=== PATIENT | female | born 1955 | race Caucasian/White ===

== ENCOUNTER 2017-02-10 21:52 | Inpatient (IN) | payer OTHER ==
[~2017-02-10] VITALS: Ht 162.6 cm; Wt 74.9 kg
[~2017-02-10 21:52] MED LIST: ALBU8.5H3 IH
[2017-02-11] VITALS (10 sets, daily range): BP systolic 105–126; BP diastolic 64–79; PULSE 62–73; RESP 16–19; Ht 162.6 cm; Wt 74.9 kg
[2017-02-11] MEDS ORDERED: METOCLOPRAMIDE 10 MG INJ IV ONE (01:00)
[2017-02-11] MEDS ORDERED: morphine 2 MG INJ ONE (01:37)
[2017-02-11] MEDS: morphine 2 MG INJ IV PRN ×3 (01:39→19:57)
[2017-02-11] MEDS ORDERED: hydrALAzine 20 MG INJ IV PRN (08:00)
[2017-02-11] MEDS ORDERED: HYDROCODONE/APAP (5/325) TAB PO PRN (08:00)
--- NOTE | 2017-02-11 08:14 | HP ---
DATE OF ADMISSION: 02/11/2017 CHIEF COMPLAINT: Headache, left-sided chest pain of 3 day duration. HISTORY OF PRESENT ILLNESS: The patient states that her symptoms started 3 days ago. She woke up with a headache that persisted until she went back to sleep. The patient reports that he has a history of renal cancer and status post left-sided nephrectomy and because of that, she is a careful about pain medications that she can take. She tried to ride out the pain, but to no avail. Yesterday she developed severe left-sided chest pain, she rates it at about 10/10, associated with numbness on the left side of her face, numbness and heaviness in the left upper extremity. She was also having some tingling in her left lower extremity. He has never had these kind of symptoms before. Because of that and she told her family to take her to the emergency room. In the emergency room her preliminary work up so far has been negative and she is being admitted for chest pain rule out, as well stroke workup. PAST MEDICAL HISTORY: Positive only for high blood pressure. History of renal cell cancer status post nephrectomy without chemo or radiation. PAST SURGICAL HISTORY: Nephrectomy. She also had back surgery, as well with 4 screws and a viral. ALLERGIES: THE PATIENT IS ALLERGIC TO CODEINE, SHE SAYS IT MAKES HER SUFFOCATE. FAMILY HISTORY: Positive for coronary artery disease. Positive for stroke in her brother who of a stroke at age 52. HOME MEDICATIONS: She takes lisinopril 20 mg daily. PHYSICAL EXAMINATION: VITAL SIGNS: Blood pressure 111/71, pulse 66, respiration 18, temperature 97.8. Saturation is 98 percent. GENERAL APPEARANCE: At this time the patient alert and oriented. She is anxious. HEENT: Shows is normocephalic. Pupils are equal, round, reactive. Mucous membranes are moist. Posterior pharynx clear, no erythema, no exudates. There is no facial asymmetry. LUNGS: Clear to auscultation. CARDIOVASCULAR: S1, S2. No murmurs. ABDOMEN: Abdomen is soft, nontender, nondistended. Normal active bowel sounds. EXTREMITIES: No extremity edema. MUSCULOSKELETAL/NEUROLOGIC: The patient has good range of motion in all 4 extremities, without evidence of focal deficits. Even though the patient does have subjective numbness in her upper extremities. SKIN: There is no skin rash. No jaundice. LABORATORY VALUES: I reviewed her lab from the referring sites and the EKG as well as a chest x-ray, and CT of the brain and CT of the brain and EKG did not show any acute deficits. Her labs are grossly normal. Please note that the creatinine was slightly elevated as well as the BUN. ASSESSMENT: 1. Persistent headache and left-sided numbness, presents for possible stroke. 2. Chest pain. Rule out acute coronary syndrome. 3. Acute renal insufficiency. Rule out kidney disease. 4. Status post-left nephrectomy for renal cell cancer. 5. Marijuana use. PLAN: To admit to telemetry floor, stroke workup to include echo and carotid. Patient unfortunately did not have an MRI because of the rods in her back. Neurology consultation will be obtained, and physical therapy evaluation. Will complete acute coronary syndrome rule out with 3 sets of troponin's and get at 2D echo. Further intervention will depend on the clinical course. In the meantime, we will check a lipid profile, thyroid function tests and electrolytes. Patient will be started on aspirin, and a statin will be added if indicated. DEANDRA inhibitors are on hold for now. Will use as needed blood pressure medications only. If necessary patient will be started on a beta niurka. Prophylaxis with SCDs and Pepcid. Plan of care has been discussed with the patient. Questions have been answered. Dictated By: Latrice Joseph MD /saud/josh /Document#: [id number]
[2017-02-11] MEDS: ASPIRIN 81 MG TAB PO SCH (08:57)
[2017-02-11] MEDS: LISINOPRIL 20 MG TAB PO SCH (08:57)
[2017-02-11] MEDS: DOCUSATE SODIUM 100 MG CAP PO SCH ×2 (08:58→20:48)
[2017-02-11] MEDS: FAMOTIDINE 20 MG TAB PO SCH ×2 (08:58→20:48)
[2017-02-11] MEDS ORDERED: ACETAMINOPHEN 325 MG TAB PO PRN (09:00)
[2017-02-11 10:16] LABS: BASOPHILS % 0.4 % (0.0-2.0); EOSINOPHILS # 0.1 10^3/ul (0.0-0.5); HEMATOCRIT 37.5 % (37.0-47.0); HEMOGLOBIN 12.1 g/dl (12.0-16.0); LYMPHOCYTES # 2.2 10^3/ul (0.8-2.9); LYMPHOCYTES % 43.5 % (15.0-51.0); MEAN CORPUSCULAR HEMOGLOBIN 30.4 pg (29.0-33.0); MEAN CORPUSCULAR HGB CONC 32.3 g/dl (32.0-37.0); MEAN CORPUSCULAR VOLUME 94.2 fl (82.0-101.0); MEAN PLATELET VOLUME 10.5 fl (7.4-10.4); MONOCYTE # 0.5 10^3/ul (0.3-0.9); MONOCYTES % 9.8 % (0.0-11.0); NEUTROPHILS % 45.1 % (39.0-77.0); PLATELET COUNT 206 10^3/UL (140-415); RED BLOOD COUNT 3.98 10^6/ul (4.20-5.40); RED CELL DISTRIBUTION WIDTH 13.6 % (11.5-14.5); RETICULOCYTE COUNT % 1.4 % (0.5-1.5)
--- NOTE | 2017-02-11 10:19 | RADRPT ---
PROCEDURE: US Carotids. CLINICAL INDICATION: bruit , CVA TECHNIQUE: Multiple sonographic of the carotid bifurcation region and vertebral arteries were obta ined utilizing palomo scale, duplex and color-flow imaging. The images were reviewed on a PACS worksta tion. COMPARISON: No prior studies are available for comparison. FINDINGS: Evaluation of the right carotid bifurcation region reveals mild calcific atherosclerotic disease. Evaluation of the left carotid bifurcation region reveals no significant calcific atherosclerotic di sease. There is antegrade flow within the vertebral arteries bilaterally. RIGHT CAROTID MEASUREMENTS: Common Carotid Gueqed86.2 (cm/sec) Internal Carotid Artery - kuhqedcx79.1 (cm/sec) Internal Carotid Artery - mid72.5 (cm/sec) Internal Carotid Artery - zuvrle59 (cm/sec) Internal Carotid/Common Carotid1.17 LEFT CAROTID MEASUREMENTS: Common Carotid Vgfixx12.1 (cm/sec) Internal Carotid Artery - aztniujm58.5 (cm/sec) Internal Carotid Artery - mid60.8 (cm/sec) Internal Carotid Artery - .6 (cm/sec) Internal Carotid/Common Carotid1.2 RPTAT: AA IMPRESSION: No evidence for hemodynamically significant stenosis in the bilateral internal carotid arteries - va lidated velocity measurements with angiographic measurements, velocity criteria are extrapolated fro m diameter data as defined by the Society of Radiologists in Ultrasound Consensus Conference Radiolo gy 2003; 229;340-346. This study does indirectly reference the measurement of the distal ICA diamet er as the denominator for stenosis measurement. Normal antegrade flow in the vertebral arteries bilaterally. .Dom Krishnan MD, Date Time Electronically viewed and signed by .Dom Krishnan MD, MD on 02/11/2017 10:19 .S/
--- NOTE | 2017-02-11 10:20 | RADRPT ---
PROCEDURE: Retroperitoneal US. CLINICAL INDICATION: Renal insufficiency TECHNIQUE: Multiple sonographic images of the kidneys and retroperitoneum were obtained. The imag es were reviewed on a PACS workstation. COMPARISON: MR 04/10/2014; US ABDOMEN 04/09/2014 FINDINGS: The right kidney is normal in size, contour, cortical thickness and cortical echogenicity. The right kidney measures 11.8 cm. The patient is status post left nephrectomy. No kidney stones are visualized. There is no evidence for hydronephrosis. The urinary bladder is normal. RPTAT: AA IMPRESSION: Status post left nephrectomy. Normal appearance of the right kidney with no evidence of hydronephrosis. .Dom Krishnan MD, Date Time Electronically viewed and signed by .Dom Krishnan MD, MD on 02/11/2017 10:20 .S/
[2017-02-11 10:25] LABS: ALANINE AMINOTRANSFERASE 37 IU/L (13-69); ALBUMIN 3.9 g/dl (3.3-4.9); ALBUMIN/GLOBULIN RATIO 1.08; ALKALINE PHOSPHATASE 88 IU/L (42-121); ANION GAP 12 (8-16); ASPARTATE AMINO TRANSFERASE 24 IU/L (15-46); BILIRUBIN,INDIRECT 0.5 mg/dl (0-1.1); BILIRUBIN,TOTAL 0.5 mg/dl (0.2-1.3); BLOOD UREA NITROGEN 19 mg/dl (7-20); CALCIUM 9.7 mg/dl (8.4-10.2); CARBON DIOXIDE 28 mmol/L (21-31); CHLORIDE 103 mmol/L (97-110); CHOL/HDL RATIO 3.9 RATIO; CHOLESTEROL 189 mg/dl (100-200); CREATINE KINASE 52 IU/L (23-200); CREATININE 1.19 mg/dl (0.44-1.00); GLUCOSE 100 mg/dl (70-220); HDL CHOLESTEROL 48 mg/dl (35-98); MAGNESIUM 2.2 mg/dl (1.7-2.5); PHOSPHORUS 3.3 mg/dl (2.5-4.9); POTASSIUM 4.1 mmol/L (3.5-5.1); SODIUM 139 mmol/L (135-144); TOTAL PROTEIN 7.5 g/dl (6.1-8.1); TRIGLYCERIDES 185 mg/dl (0-149)
[2017-02-11 10:32] LABS: CK-MB 0.34 ng/ml (0.0-2.4)
[2017-02-11 10:39] LABS: TROPONIN-I < 0.012 ng/ml (0.00-0.12)
--- NOTE | 2017-02-11 10:53 | PN ---
Date/Time of Note Date/Time of Note DATE: 02/11/17 TIME: 10:47 Assessment/Plan VTE Prophylaxis VTE Prophylaxis Intervention: heparin Assessment/Plan Problems: (1) Asthma, moderate persistent Status: Chronic Comment: Patient is not well controlled based on her review of systems. I will continue her Advair here and add in Iliana irizarry. Qualifiers: Asthma complication type: uncomplicated Qualified Code: J45.40 - Moderate persistent asthma without complication (2) Hepatitis C antibody positive in blood Status: Chronic Comment: Status of this is unknown. Will use blood and body fluid precautions in this individual (3) Left-sided headache Status: Acute Comment: I actually suspect this is a presentation of zoster that has not blossomed into the skin rash yet. She will be treated as such and be observed. Please note the negative head CT scan from the other facility. (4) Status post nephrectomy Status: Chronic Comment: Her baseline renal function based on her old labs in this institution is a serum creatinine of 1.19. Her creatinine at the other facility is 1.43. Will recheck this. In addition if she has urinary tract infection we will treat it (5) Essential hypertension Status: Chronic Comment: Continue on DEANDRA inhibitor therapy. (6) Chronic kidney disease, stage II (mild) Status: Chronic Comment: Noted and appropriate after nephrectomy Subjective 24 Hr Interval Summary Free Text/Dictation Re-review of history and exam of the patient demonstrates an extremely variable history. She has multiple chronic complaints however in the last 2 days she has developed a left sided scalp and facial pain. This is limited above the eyebrow from the midline over and radiates to the crown of the neck. She has not developed any rash yet. She reports this is a dysesthesia/allodynia. Constitutional: no complaints Eyes: other (Ports chronic blurriness of vision) Respiratory: cough, wheezing (These are chronic issues) Cardiovascular: no complaints Musculoskeletal: back pain, other (Left shoulder girdle pain that comes and goes and is chronic for many years) Exam/Review of Systems Vital Signs Vitals Vital Signs Date Time Temp Pulse Resp B/P Pulse Ox O2 Delivery O2 Flow Rate FiO2 02/11/17 09:33 62 02/11/17 08:03 98.4 16 119/72 97 02/11/17 04:00 Room Air Exam Constitutional: alert, oriented Head: atraumatic, normocephalic Eyes: EOMI, nl conjunctiva, nl lids, nl sclera ENMT: mucosa pink and moist, nl external ears & nose, nl nasal mucosa & septum , other (Dentition in poor repair) Neck: non-tender, supple Skin: other (At this time no evidence of a rash suggestive of zoster yet) Results Result Diagram: 02/11/1792702/11/1728 Results 24 hrs Laboratory Tests Test 02/11/17 09:28 White Blood Count 5.0 # Red Blood Count 3.98 L Hemoglobin 12.1 Hematocrit 37.5 Mean Corpuscular Volume 94.2 Mean Corpuscular Hemoglobin 30.4 Mean Corpuscular Hemoglobin Concent 32.3 Red Cell Distribution Width 13.6 Platelet Count 206 Mean Platelet Volume 10.5 H Neutrophils % 45.1 Lymphocytes % 43.5 Monocytes % 9.8 Eosinophils % 1.0 Basophils % 0.4 Nucleated Red Blood Cells % 0.0 Neutrophils # (Manual) 2.3 Lymphocytes # 2.2 Monocytes # 0.5 Eosinophils # 0.1 Basophils # 0.0 Nucleated Red Blood Cells # 0.0 Absolute Reticulocyte Count 0.057 Percent Reticulocyte Count 1.4 Sodium Level 139 Potassium Level 4.1 Chloride Level 103 Carbon Dioxide Level 28 Anion Gap 12 Blood Urea Nitrogen 19 Creatinine 1.19 H Glucose Level 100 Calcium Level 9.7 Phosphorus Level 3.3 Magnesium Level 2.2 Total Bilirubin 0.5 Direct Bilirubin 0.00 Indirect Bilirubin 0.5 Aspartate Amino Transf (AST/SGOT) 24 Alanine Aminotransferase (ALT/SGPT) 37 Alkaline Phosphatase 88 Creatine Kinase 52 Creatine Kinase Index 0.7 Creatinine Kinase MB (Mass) 0.34 Troponin I < 0.012 Total Protein 7.5 Albumin 3.9 Globulin 3.60 H Albumin/Globulin Ratio 1.08 Triglycerides Level 185 H Cholesterol Level 189 LDL Cholesterol, Calculated 104 HDL Cholesterol 48 Cholesterol/HDL Ratio 3.9 Thyroid Stimulating Hormone (TSH) Pending Medications Medications Current Medications Morphine Sulfate 2 mg 2 mg Q4H PRN IV PAIN Last administered on 02/11/17t 01:39 ; Admin Dose 2 MG; Start 02/11/17 at 01:00 Sodium Chloride (NS) 1,000 ml @ 100 mls/hr Q10H IV ; Start 02/11/17 at 01:00; Stop 02/11/17 at 20:59 Famotidine (Pepcid) 20 mg BID PO Last administered on 02/11/17 08:58; Admin Dose 20 MG; Start 02/11/17 at 09:00 Ondansetron HCl (Zofran Inj) 4 mg Q6H PRN IV NAUSEA AND/OR VOMITING; Start at 01:00 Aspirin (Aspirin) 81 mg DAILY PO Last administered on 02/11/17 08:57; Admin Dose 81 MG; Start 02/11/17 at 09:00 Docusate Sodium (Colace) 100 mg BID PO Last administered on 02/11/17 08:58; Admin Dose 100 MG; Start 02/11/17 at 09:00 Lisinopril (Zestril) 20 mg DAILY PO Last administered on 02/11/17 08:57; Admin Dose 20 MG; Start 02/11/17 at 09:00 Hydralazine HCl (Apresoline) 10 mg Q6H PRN IV SBP 160 OR EQUAL; Start 02/11/17 at 08:00 Acetaminophen/ Hydrocodone Bitart ([place] (5/325)) 1 tab Q6H PRN PO BREAKTHROUGH PAIN; Start 02/11/17 at 08:00; Status UNV Acetaminophen (Tylenol Tab) 650 mg Q6H PRN PO PAIN AND OR ELEVATED TEMP; Start 02/11/17 at 09:00; Status Future Hold Miscellaneous Information NORCO 5/ 325 #6 TA... BID@ XX ; Start 02/11/17 at 10:00 MARIANNE LEOS MD Feb 11, 2017 10:53
[2017-02-11] MEDS: SALMETEROL/FLUTICASONE 250/50 INHA INH SCH ×2 (11:00→20:48)
--- NOTE | 2017-02-11 11:16 | RADRPT ---
Echocardiogram Report Patient Name: HAMZAH VILLARREAL Gender: Female Date: 1955 Study Date: 11-Feb-2017 [employer] Teacher: Nino Andres [facility] Location: [address] Ref. Physician: DOMENICA LOPES Quality: Adequate Procedures: Transthoracic echocardiogram with complete 2D, M-Mode, and doppler examination. Indications: Evaluate Left Ventricular function. 2D/M Mode Doppler Measurement Value Normal Ranges Measurement Value Normal Ranges LVIDd 2D 4.9 3.5 - 5.6 cm AV Peak Cristo 1.3 m/sec LVIDs 2D 3.0 2.1 - 4.1 cm AV Peak PG 7.0 mmHg FS 2D 39.2 % AI Peak PG 67.0 mmHg LVPWd 2D 0.8 0.6 - 1.1 cm AI Peak Cristo 4.1 m/sec IVSd 2D 0.7 0.6 - 1.1 cm AI PHT 776.0 msec IVS/LVPW 2D 0.9 LVOT Peak Cristo 0.7 m/sec AoR Diam 2D 2.6 2.0 - 3.7 cm LVOT Peak PG 2.0 mmHg LA/Ao 2D 1 0 - 1 MV E Peak Cristo 0.6 m/sec EDV 2D 121.0 cm3 MV A Peak Cristo 0.8 m/sec ESV 2D 27.3 cm3 MV E/A 0.8 LA Dimen 2D 2.4 2.3 - 4.0 cm MV Decel Time 194 msec MV E/A 0.8 TR Peak Cristo 2.2 m/sec TR Peak PG 20.0 mmHg RVSP 23.0 mmHg Findings Left Ventricle: Normal left ventricular systolic function. Normal left ventricular cavity size. Normal left ventricular wall thickness. Ejection fraction is visually estimated at 55 %. Tissue Doppler/Mitral Doppler indices are consistent with impaired relaxation (Stage I diastolic dysfunction). Right Ventricle: Normal right ventricular size. Normal right ventricular systolic function. Left Atrium: There is mild enlargement of left atrium. Right Atrium: The right atrium is normal in size. Mitral Valve: Normal appearance and function of the mitral valve with trace physiologic regurgitation. Aortic Valve: Normal trileaflet aortic valve structure. Aortic cusps appear mildly calcified. Mild aortic valve regurgitation. Tricuspid Valve: Normal appearance of the tricuspid valve. Estimated peak PA systolic pressure 23 mmHg. There is trace tricuspid regurgitation. Pulmonic Valve: Normal pulmonic valve appearance. There is mild pulmonic regurgitation. Pericardium: Normal pericardium with no significant pericardial effusion. Aorta: Sinus of valsalva is mildly dilated. Sinus of valsalva3.2 cm. IVC: Normal size and normal respiratory collapse consistent with normal right atrial pressure. Conclusions 1.Normal left ventricular systolic function. Normal left ventricular cavity size. Normal left ventricular wall thickness. Ejection fraction is visually estimated at 55 %. Tissue Doppler/Mitral Doppler indices are consistent with impaired relaxation (Stage I diastolic dysfunction). 2.Mild aortic regurgitation. 3.Sinus of valsalva is mildly dilated at 3.2 cm. 4.Estimated peak PA systolic pressure 23 mmHg based on RA pressure of 3 mmHg. Electronically Signed By: Bishop Melo 11-Feb-2017 11:15:00 -0700 Patient Name: HAMZAH VILLARREAL Study Date: 11-Feb-2017 [id number]
[2017-02-11 11:48] LABS: CHOL/HDL RATIO 3.7 RATIO
[2017-02-11] MEDS: SOD CHLORIDE 0.9% 1,000 ML IV SCH (19:57)
[2017-02-11] MEDS: MONTELUKAST 10 MG TAB PO SCH (20:48)
[2017-02-11] MEDS: VALACYCLOVIR 500 MG TAB PO SCH (20:49)
[2017-02-12] VITALS (13 sets, daily range): BP systolic 102–126; BP diastolic 61–86; PULSE 66–108; RESP 16–19
[2017-02-12] MEDS: morphine 2 MG INJ IV PRN ×3 (00:20→17:31)
[2017-02-12] MEDS: SOD CHLORIDE 0.9% 1,000 ML IV SCH (06:14)
[2017-02-12 07:03] LABS: BASOPHILS % 0.2 % (0.0-2.0); EOSINOPHILS # 0.1 10^3/ul (0.0-0.5); EOSINOPHILS % 1.1 % (0.0-7.0); HEMATOCRIT 36.9 % (37.0-47.0); HEMOGLOBIN 12.1 g/dl (12.0-16.0); LYMPHOCYTES # 2.6 10^3/ul (0.8-2.9); LYMPHOCYTES % 46.6 % (15.0-51.0); MEAN CORPUSCULAR HEMOGLOBIN 30.9 pg (29.0-33.0); MEAN CORPUSCULAR HGB CONC 32.8 g/dl (32.0-37.0); MEAN CORPUSCULAR VOLUME 94.1 fl (82.0-101.0); MEAN PLATELET VOLUME 10.3 fl (7.4-10.4); MONOCYTE # 0.5 10^3/ul (0.3-0.9); MONOCYTES % 9.3 % (0.0-11.0); NEUTROPHILS % 42.6 % (39.0-77.0); PLATELET COUNT 210 10^3/UL (140-415); RED BLOOD COUNT 3.92 10^6/ul (4.20-5.40); RED CELL DISTRIBUTION WIDTH 13.5 % (11.5-14.5); WHITE BLOOD COUNT 5.5 10^3/ul (4.8-10.8)
[2017-02-12 07:45] LABS: ALBUMIN 3.8 g/dl (3.3-4.9); ALBUMIN/GLOBULIN RATIO 1.08; BILIRUBIN,INDIRECT 0.5 mg/dl (0-1.1); BILIRUBIN,TOTAL 0.5 mg/dl (0.2-1.3); CREATININE 1.13 mg/dl (0.44-1.00); TOTAL PROTEIN 7.3 g/dl (6.1-8.1)
[2017-02-12] MEDS: LISINOPRIL 20 MG TAB PO SCH (09:12)
[2017-02-12] MEDS: SALMETEROL/FLUTICASONE 250/50 INHA INH SCH ×2 (09:12→21:51)
[2017-02-12] MEDS: VALACYCLOVIR 500 MG TAB PO SCH ×2 (09:12→21:53)
[2017-02-12] MEDS: ASPIRIN 81 MG TAB PO SCH (09:12)
[2017-02-12] MEDS: FAMOTIDINE 20 MG TAB PO SCH ×2 (09:12→21:53)
[2017-02-12] MEDS: DOCUSATE SODIUM 100 MG CAP PO SCH ×2 (09:12→21:53)
--- NOTE | 2017-02-12 09:59 | PN ---
Date/Time of Note Date/Time of Note DATE: 02/12/17 TIME: 09:56 Assessment/Plan VTE Prophylaxis VTE Prophylaxis Intervention: other Lines/Catheters IV [facility] (from [facility] Saline Lock Assessment/Plan Problems: (1) Hepatitis C antibody positive in blood Status: Chronic Comment: Noted. This is unclear whether or not she has a viral antibody positivity. She will be treated with blood and body fluid precautions. This can be followed up as an outpatient by gastroenterology (2) Essential hypertension Status: Chronic Comment: Adequate control. (3) Diastolic dysfunction Status: Chronic Comment: Noted. Controlled with blood pressure medications (4) Aortic regurgitation Status: Chronic Comment: Noted. No indication for change in therapeutics Qualifiers: Cardiac valve disease etiology: nonrheumatic Qualified Code: I35.1 - Nonrheumatic aortic valve insufficiency (5) Asthma, moderate persistent Status: Chronic Comment: Well-controlled with standard and routine medications Qualifiers: Asthma complication type: uncomplicated Qualified Code: J45.40 - Moderate persistent asthma without complication (6) Left-sided headache Status: Acute Comment: I am still of the impression given the negative CT scan from the other institution that this represents acute varicella-zoster. Rash has not presented yet. Not got the patient on in valacyclovir. I will add in gabapentin now Subjective 24 Hr Interval Summary Free Text/Dictation Variable historian who changes information frequently Constitutional: no complaints (Denies fevers chills or sweats) Eyes: no complaints ENT: no complaints Respiratory: no complaints Cardiovascular: no complaints Gastrointestinal: no complaints Neurologic: headache (Planes of throbbing headache. With careful history taking this predominantly left-sided.) Exam/Review of Systems Vital Signs Vitals Vital Signs Date Time Temp Pulse Resp B/P Pulse Ox O2 Delivery O2 Flow Rate FiO2 02/12/17 08:05 69 02/12/17 07:40 98.4 18 116/69 100 02/11/17 04:00 Room Air Intake and Output 02/11/17 02/11/17 02/12/17 15:00 23:00 07:00 Intake Total 1300 ml Balance 1300 ml Exam Constitutional: alert, oriented Respiratory: clear to auscultation, normal air movement Cardiovascular: nl pulses, regular rate and rhythm Gastrointestinal: nl liver, spleen, non-tender, soft Skin: other Results Result Diagram: 02/12/17 0602/12/17 0606 Results 24 hrs Laboratory Tests Test 02/11/17 15:00 02/12/17 06:06 Hepatitis B Surface Antigen NEGATIVE Hepatitis C Antibody REACTIVE H White Blood Count 5.5 Red Blood Count 3.92 L Hemoglobin 12.1 Hematocrit 36.9 L Mean Corpuscular Volume 94.1 Mean Corpuscular Hemoglobin 30.9 Mean Corpuscular Hemoglobin Concent 32.8 Red Cell Distribution Width 13.5 Platelet Count 210 Mean Platelet Volume 10.3 Neutrophils % 42.6 Lymphocytes % 46.6 Monocytes % 9.3 Eosinophils % 1.1 Basophils % 0.2 Nucleated Red Blood Cells % 0.0 Neutrophils # (Manual) 2.3 Lymphocytes # 2.6 Monocytes # 0.5 Eosinophils # 0.1 Basophils # 0.0 Nucleated Red Blood Cells # 0.0 Sodium Level 144 Potassium Level 4.0 Chloride Level 106 Carbon Dioxide Level 26 Anion Gap 16 Blood Urea Nitrogen 18 Creatinine 1.13 H Glucose Level 93 Calcium Level 9.0 Total Bilirubin 0.5 Direct Bilirubin 0.00 Indirect Bilirubin 0.5 Aspartate Amino Transf (AST/SGOT) 21 Alanine Aminotransferase (ALT/SGPT) 30 Alkaline Phosphatase 81 Total Protein 7.3 Albumin 3.8 Globulin 3.50 H Albumin/Globulin Ratio 1.08 Medications Medications Current Medications Morphine Sulfate (morphine) 2 mg Q4H PRN IV PAIN Last administered on 09:13; Admin Dose 2 MG; Start 02/11/17 at 01:00 Famotidine (Pepcid) 20 mg BID PO Last administered on 02/12/17 09:12; Admin Dose 20 MG; Start 02/11/17 at 09:00 Ondansetron HCl (Zofran Inj) 4 mg Q6H PRN IV NAUSEA AND/OR VOMITING; Start at 01:00 Aspirin (Aspirin) 81 mg DAILY PO Last administered on 02/12/17 09:12; Admin Dose 81 MG; Start 02/11/17 at 09:00 Docusate Sodium (Colace) 100 mg BID PO Last administered on 02/12/17 09:12; Admin Dose 100 MG; Start 02/11/17 at 09:00 Lisinopril (Zestril) 20 mg DAILY PO Last administered on 02/12/17 09:12; Admin Dose 20 MG; Start 02/11/17 at 09:00 Hydralazine HCl (Apresoline) 10 mg Q6H PRN IV SBP 160 OR EQUAL; Start 02/11/17 at 08:00 Acetaminophen/ Hydrocodone Bitart ([place] (5/325)) 1 tab Q6H PRN PO BREAKTHROUGH PAIN; Start 02/11/17 at 08:00 Acetaminophen (Tylenol Tab) 650 mg Q6H PRN PO PAIN AND OR ELEVATED TEMP; Start 02/11/17 at 09:00; Status Future Hold Miscellaneous Information NORCO 5/ 325 #6 TA... BID@ XX ; Start 02/11/17 at 10:00 Valacyclovir HCl (Valtrex) 500 mg BID PO Last administered on 02/12/17 09:12; Admin Dose 500 MG; Start 02/11/17 at 21:00 Salmeterol Xinafoate/ Fluticasone (Advair 250/50 Diskus) 1 inh BID INH Last administered on 02/12/17 09:12; Admin Dose 1 INH; Start 02/11/17 at 11:00 Montelukast Sodium (Singulair) 10 mg HS PO Last administered on 02/11/17 20:48 ; Admin Dose 10 MG; Start 02/11/17 at 21:00 MARIANNE LEOS MD Feb 12, 2017 09:59
[2017-02-12] MEDS: GABAPENTIN 300 MG CAP PO SCH ×2 (12:53→21:53)
[2017-02-12] MEDS: MONTELUKAST 10 MG TAB PO SCH (21:53)
[2017-02-12 23:15] LABS: ADD UMIC YES; UR ASCORBIC ACID NEGATIVE (NEGATIVE); UR BILIRUBIN (Dip) NEGATIVE (NEGATIVE); UR BLOOD (Dip) 1+ mg/dL (NEGATIVE); UR CLARITY CLEAR (CLEAR); UR COLOR STRAW (YELLOW); UR GLUCOSE (Dip) NEGATIVE (NEGATIVE); UR KETONES (Dip) NEGATIVE (NEGATIVE); UR LEUKOCYTE ESTERASE (Dip) 1+ Leu/ul (NEGATIVE); UR NITRITE (Dip) NEGATIVE (NEGATIVE); UR RBC 5 /HPF (0-5); UR SPECIFIC GRAVITY (Dip) 1.009 (1.003-1.030); UR TOTAL PROTEIN (Dip) NEGATIVE (NEGATIVE); UR UROBILINOGEN (Dip) NEGATIVE (NEGATIVE)
[2017-02-13] VITALS (12 sets, daily range): BP systolic 93–122; BP diastolic 60–80; PULSE 60–80; RESP 16–19
[2017-02-13 07:03] LABS: BASOPHILS % 0.5 % (0.0-2.0); EOSINOPHILS # 0.1 10^3/ul (0.0-0.5); EOSINOPHILS % 1.3 % (0.0-7.0); HEMATOCRIT 38.8 % (37.0-47.0); HEMOGLOBIN 12.5 g/dl (12.0-16.0); LYMPHOCYTES # 2.5 10^3/ul (0.8-2.9); LYMPHOCYTES % 44.1 % (15.0-51.0); MEAN CORPUSCULAR HEMOGLOBIN 29.8 pg (29.0-33.0); MEAN CORPUSCULAR HGB CONC 32.2 g/dl (32.0-37.0); MEAN CORPUSCULAR VOLUME 92.6 fl (82.0-101.0); MEAN PLATELET VOLUME 10.2 fl (7.4-10.4); MONOCYTE # 0.6 10^3/ul (0.3-0.9); MONOCYTES % 10.1 % (0.0-11.0); NEUTROPHILS % 43.8 % (39.0-77.0); PLATELET COUNT 203 10^3/UL (140-415); RED BLOOD COUNT 4.19 10^6/ul (4.20-5.40); RED CELL DISTRIBUTION WIDTH 13.6 % (11.5-14.5); WHITE BLOOD COUNT 5.6 10^3/ul (4.8-10.8)
[2017-02-13 07:34] LABS: C-REACTIVE PROTEIN 0.5 mg/dl (0.0-0.9); CALCIUM 9.8 mg/dl (8.4-10.2); CREATININE 1.23 mg/dl (0.44-1.00); POTASSIUM 4.1 mmol/L (3.5-5.1)
[2017-02-13] MEDS: SALMETEROL/FLUTICASONE 250/50 INHA INH SCH ×2 (08:53→20:39)
[2017-02-13] MEDS: DOCUSATE SODIUM 100 MG CAP PO SCH ×2 (08:54→20:39)
[2017-02-13] MEDS: ASPIRIN 81 MG TAB PO SCH (08:54)
[2017-02-13] MEDS: LISINOPRIL 20 MG TAB PO SCH (08:54)
[2017-02-13] MEDS: GABAPENTIN 300 MG CAP PO SCH ×3 (08:54→20:41)
[2017-02-13] MEDS: VALACYCLOVIR 500 MG TAB PO SCH ×2 (08:54→21:00)
[2017-02-13] MEDS: FAMOTIDINE 20 MG TAB PO SCH (08:54)
[2017-02-13] MEDS: morphine 2 MG INJ IV PRN (10:29)
[2017-02-13] MEDS: ONDANSETRON 4 MG INJ IV PRN (12:35)
[2017-02-13] MEDS ORDERED: HYDROCODONE/APAP (10/325) TAB PO PRN (15:30)
--- NOTE | 2017-02-13 17:25 | PN ---
Date/Time of Note Date/Time of Note DATE: 02/13/17 TIME: 17:21 Assessment/Plan VTE Prophylaxis VTE Prophylaxis Intervention: LMWH Lines/Catheters IV [facility]from [facility] Saline Lock Assessment/Plan Chief Complaint/Hosp Course Subjective: Bilateral black back flank pain radiating down right leg to her toes. No known aggravating or relieving factors. 2-3 weeks. No treatment prior to arrival. Refuses nonsteroidals/Tylenol. No fever chills weight loss incontinence or loss of sensation. Dysuria. Objective: Vital signs stable sinus rhythm No pallor Reg Clear Bs + nt nd no r/r/g; no CVAT No edema; straight leg raising stress test greater than 45 bilat A/P 1. Headache/ cephalgia. CT brain pending; stable cont supportive care 2. Marijuana use? 3. Atypical chest pain. Second troponin in am. 3. Right-sided sciatica. Outpt pt. Avoid constipation. Cont Neurontin/ Flexeril. Prednisone added. Refuses nonsteroidal/Tylenol 4. Nonadherence 5. History of renal cell carcinoma 6. Nephrectomy status 7. Chronic hypertension 8. Hepatitis C? Confirmatory test pending 9. UTI? Culture appears negative at this time. Problems: Exam/Review of Systems Vital Signs Vitals Vital Signs Date Time Temp Pulse Resp B/P Pulse Ox O2 Delivery O2 Flow Rate FiO2 02/13/17 16:04 73 02/13/17 15:44 97.8 19 105/70 97 02/11/17 04:00 Room Air Intake and Output 02/12/17 02/12/17 02/13/17 15:00 23:00 07:00 Intake Total 650 ml Balance 650 ml Results Result Diagram: 02/13/17 0610 02/13/17 0610 Results 24 hrs Laboratory Tests Test 02/12/17 20:00 02/13/17 06:10 Urine Color STRAW Urine Clarity CLEAR Urine pH 6.0 Urine Specific [place] 1.009 Urine Ketones NEGATIVE Urine Nitrite NEGATIVE Urine Bilirubin NEGATIVE Urine Urobilinogen NEGATIVE Urine Leukocyte Esterase 1+ H Urine Microscopic RBC 5 Urine Microscopic WBC 4 Urine Hemoglobin 1+ H Urine Glucose NEGATIVE Urine Total Protein NEGATIVE White Blood Count 5.6 Red Blood Count 4.19 L Hemoglobin 12.5 Hematocrit 38.8 Mean Corpuscular Volume 92.6 Mean Corpuscular Hemoglobin 29.8 Mean Corpuscular Hemoglobin Concent 32.2 Red Cell Distribution Width 13.6 Platelet Count 203 Mean Platelet Volume 10.2 Neutrophils % 43.8 Lymphocytes % 44.1 Monocytes % 10.1 Eosinophils % 1.3 Basophils % 0.5 Nucleated Red Blood Cells % 0.0 Neutrophils # (Manual) 2.4 Lymphocytes # 2.5 Monocytes # 0.6 Eosinophils # 0.1 Basophils # 0.0 Nucleated Red Blood Cells # 0.0 Erythrocyte Sedimentation Rate 25.0 Sodium Level 144 Potassium Level 4.1 Chloride Level 103 Carbon Dioxide Level 27 Anion Gap 18 H Blood Urea Nitrogen 19 Creatinine 1.23 H Glucose Level 99 Calcium Level 9.8 C-Reactive Protein 0.5 Medications Medications Current Medications Morphine Sulfate (morphine) 2 mg Q4H PRN IV PAIN Last administered on 10:29; Admin Dose 2 MG; Start 02/11/17 at 01:00 Ondansetron HCl (Zofran Inj) 4 mg Q6H PRN IV NAUSEA AND/OR VOMITING Last administered on 02/13/17 12:35; Admin Dose 4 MG; Start 02/11/17 at 01:00 Aspirin (Aspirin) 81 mg DAILY PO Last administered on 02/13/17 08:54; Admin Dose 81 MG; Start 02/11/17 at 09:00 Docusate Sodium (Colace) 100 mg BID PO Last administered on 02/13/17 08:54; Admin Dose 100 MG; Start 02/11/17 at 09:00 Lisinopril (Zestril) 20 mg DAILY PO Last administered on 02/13/17 08:54; Admin Dose 20 MG; Start 02/11/17 at 09:00 Hydralazine HCl (Apresoline) 10 mg Q6H PRN IV SBP 160 OR EQUAL; Start 02/11/17 at 08:00 Acetaminophen/ Hydrocodone Bitart ([place] (5/325)) 1 tab Q6H PRN PO BREAKTHROUGH PAIN; Start 02/11/17 at 08:00 Acetaminophen (Tylenol Tab) 650 mg Q6H PRN PO PAIN AND OR ELEVATED TEMP; Start 02/11/17 at 09:00; Status Future Hold Valacyclovir HCl (Valtrex) 500 mg BID PO Last administered on 02/13/17 08:54; Admin Dose 500 MG; Start 02/11/17 at 21:00 Salmeterol Xinafoate/ Fluticasone (Advair 250/50 Diskus) 1 inh BID INH Last administered on 02/13/17 08:53; Admin Dose 1 INH; Start 02/11/17 at 11:00 Montelukast Sodium (Singulair) 10 mg HS PO Last administered on 02/12/17 21:53 ; Admin Dose 10 MG; Start 02/11/17 at 21:00 Gabapentin (Neurontin) 300 mg TID PO Last administered on 02/13/17 12:35; Admin Dose 300 MG; Start 02/12/17 at 13:00 Famotidine (Pepcid) 20 mg DAILY PO ; Start 02/14/17 at 09:00 Acetaminophen/ Hydrocodone Bitart ([place] (10325)) 1 tab Q4H PRN PO PAIN; Start 02/13/17 at 15:30 Miscellaneous Information This note indicates t... BID@10,16 XX ; Start at 16:00 OTILIO CANALES MD Feb 13, 2017 17:25
[2017-02-13] MEDS ORDERED: METHYLPREDNISOLONE (MEDROL) DOSE PACK PO SCH (17:30)
[2017-02-13] MEDS ORDERED: METHYLPREDNISOLONE 4 MG TAB PO SCH (18:00)
[2017-02-13] MEDS: MONTELUKAST 10 MG TAB PO SCH (20:41)
[2017-02-13] MEDS: METHOCARBAMOL 750 MG TAB PO SCH ×2 (20:41→21:00)
[2017-02-14] VITALS (8 sets, daily range): BP systolic 99–132; BP diastolic 61–79; PULSE 75–96; RESP 18–19
[2017-02-14] MEDS ORDERED: METHYLPREDNISOLONE 4 MG TAB PO SCH ×4 (07:25→21:00)
[2017-02-14 07:46] LABS: BASOPHILS % 0.3 % (0.0-2.0); HEMATOCRIT 40.7 % (37.0-47.0); HEMOGLOBIN 13.3 g/dl (12.0-16.0); LYMPHOCYTES % 14.9 % (15.0-51.0); MEAN CORPUSCULAR HEMOGLOBIN 30.2 pg (29.0-33.0); MEAN CORPUSCULAR HGB CONC 32.7 g/dl (32.0-37.0); MEAN CORPUSCULAR VOLUME 92.5 fl (82.0-101.0); MEAN PLATELET VOLUME 10.5 fl (7.4-10.4); MONOCYTE # 0.1 10^3/ul (0.3-0.9); NEUTROPHILS % 82.5 % (39.0-77.0); PLATELET COUNT 223 10^3/UL (140-415); RED CELL DISTRIBUTION WIDTH 13.5 % (11.5-14.5); WHITE BLOOD COUNT 6.5 10^3/ul (4.8-10.8)
[2017-02-14] MEDS: morphine 2 MG INJ IV PRN (07:46)
[2017-02-14 08:06] LABS: INR 0.94; PROTIME 12.6 Sec (12.2-14.2)
[2017-02-14 08:21] LABS: ALBUMIN 4.5 g/dl (3.3-4.9); ALBUMIN/GLOBULIN RATIO 1.15; BILIRUBIN,INDIRECT 0.2 mg/dl (0-1.1); BILIRUBIN,TOTAL 0.2 mg/dl (0.2-1.3); CALCIUM 10.1 mg/dl (8.4-10.2); CREATININE 1.33 mg/dl (0.44-1.00); MAGNESIUM 2.1 mg/dl (1.7-2.5); PHOSPHORUS 3.4 mg/dl (2.5-4.9); TOTAL PROTEIN 8.4 g/dl (6.1-8.1)
[2017-02-14] MEDS ORDERED: FAMOTIDINE 20 MG TAB PO SCH (09:00)
[2017-02-14] MEDS: SALMETEROL/FLUTICASONE 250/50 INHA INH SCH (09:16)
[2017-02-14] MEDS: DOCUSATE SODIUM 100 MG CAP PO SCH (09:16)
[2017-02-14] MEDS: LISINOPRIL 20 MG TAB PO SCH (09:17)
[2017-02-14] MEDS: METHOCARBAMOL 750 MG TAB PO SCH ×2 (09:17→12:00)
[2017-02-14] MEDS: ASPIRIN 81 MG TAB PO SCH (09:17)
[2017-02-14] MEDS: GABAPENTIN 300 MG CAP PO SCH ×2 (09:17→12:00)
--- NOTE | 2017-02-14 10:19 | RADRPT ---
PROCEDURE: CT Brain without contrast. CLINICAL INDICATION: Headaches. TECHNIQUE: A CT of the brain was performed on multidetector high-resolution CT scanner utilizing a xial sections from the skull base through the vertex without contrast. One or more of the following dose reduction techniques were used: Automated exposure control, Adjustment of the mA and/or kV acc ording to patient size, and/or use of iterative reconstruction technique. DOSE: CTDI = 45 mGy and the DLP = 630 mGy-cm. COMPARISON: Head CT 01/19/2013 FINDINGS: No acute intracranial hemorrhage, significant mass effect or midline shift. The palomo-white different iation is grossly preserved. The ventricles are normal in size for age. No significant opacification of the visualized paranasal sinuses or mastoids. IMPRESSION: No acute intracranial findings. RPTAT: AA .Nando Clements MD, MD Date Time Electronically viewed and signed by .Nando Clements MD, on 02/14/2017 10:19 .T/
[2017-02-14] MEDS: VALACYCLOVIR 500 MG TAB PO SCH (12:00)
--- NOTE | 2017-02-14 12:29 | DS ---
Date/Time of Note Date/Time of Note DATE: 02/14/17 TIME: 12:26 Discharge Summary Admission/Discharge Info Admit Date/Time Feb 11, 2017 at 00:01 Discharge Date/Time Discharge Diagnosis sciatica Patient Condition: Stable Procedures none Hx of Present Illness 2-year-old female admitted with atypical chest pain. Ruled out for ACS by enzymes EKG symptoms. Chest x-ray negative. Next had stated bilateral flank back pain with radiation down right leg. Similar to previous sciatica. She has hardware. She refuses nonsteroidals Tylenol due to "kidney trouble". She started therapy, I have added muscle relaxant and prednisone. She stable and fit for discharge. Next had a headache numbness in the facial area without any change in speech and dysphagia or focal deficits. CAT scan brain negative. Next she claimed to have dysuria. Urine unremarkable. She is stable and fit for discharge. I would consider fibromyalgia as a potential trouble as well. Hospital Course A/P 1. Headache/ cephalgia. CT brain normal; stable cont supportive care 2. Marijuana use? 3. Atypical chest pain. 3. Rt-sided sciatica. Outpt pt. Avoid constipation. Cont Neurontin/Flexeril. Prednisone added. Refuses nonsteroidal/Tylenol 4. Nonadherence 5. History of renal cell carcinoma 6. Nephrectomy status 7. Chr hypertension 8. Hep C? Confirmatory test pending 9. Dysuria/UTI? Culture appears negative at this time. consider bethaenchol/ pyridium Imaging: CT brain, chest x-ray, renal ultrasound are normal. Cultures negative / No growth. Home Meds Reported Medications Albuterol Sulfate* (Proair HFA*) 8.5 Gm Hfa.aer.ad, 8.5 GM IH Q4 Y for WHEEZING AND SOB 01/19/13 Primary Care Provider Martinez Evans Pending Labs Laboratory Tests Test 02/14/17 06:50 02/14/17 06:54 02/14/17 06:59 Sodium Level 143mmol/L (135-144) Potassium Level 5.0mmol/L (3.5-5.1) Chloride Level 102mmol/L (97-110) Carbon Dioxide Level 24mmol/L (21-31) Anion Gap 22 (8-16) Blood Urea Nitrogen 27mg/dl (7-20) Creatinine 1.33mg/dl (0.44-1.00) Glucose Level 163mg/dl (70-220) Calcium Level 10.1mg/dl (8.4-10.2) Phosphorus Level 3.4mg/dl (2.5-4.9) Magnesium Level 2.1mg/dl (1.7-2.5) Total Bilirubin 0.2mg/dl (0.2-1.3) Direct Bilirubin 0.00mg/dl (0.00-0.20) Indirect Bilirubin 0.2mg/dl (0-1.1) Aspartate Amino Transf (AST/SGOT) 42IU/L (15-46) Alanine Aminotransferase (ALT/SGPT) 45IU/L (13-69) Alkaline Phosphatase 87IU/L (42-121) Total Protein 8.4g/dl (6.1-8.1) Albumin 4.5g/dl (3.3-4.9) Globulin 3.90g/dl (1.3-3.2) Albumin/Globulin Ratio 1.15 Prothrombin Time 12.6Sec (12.2-14.2) Prothrombin Time Ratio 1.0 INR International Normalized Ratio 0.94 White Blood Count 6.510^3/ul (4.8-10.8) Red Blood Count 4.4010^6/ul (4.20-5.40) Hemoglobin 13.3g/dl (12.0-16.0) Hematocrit 40.7% (37.0-47.0) Mean Corpuscular Volume 92.5fl (82.0-101.0) Mean Corpuscular Hemoglobin 30.2pg (29.0-33.0) Mean Corpuscular Hemoglobin Concent 32.7g/dl (32.0-37.0) Red Cell Distribution Width 13.5% (11.5-14.5) Platelet Count 43771^3/UL (140-415) Mean Platelet Volume 10.5fl (7.4-10.4) Neutrophils % 82.5% (39.0-77.0) Lymphocytes % 14.9% (15.0-51.0) Monocytes % 2.0% (0.0-11.0) Eosinophils % 0.0% (0.0-7.0) Basophils % 0.3% (0.0-2.0) Nucleated Red Blood Cells % 0.0/100WBC (0.0-0.0) Neutrophils # (Manual) 5.410^3/ul (1.7-7.5) Lymphocytes # 1.010^3/ul (0.8-2.9) Monocytes # 0.110^3/ul (0.3-0.9) Eosinophils # 0.010^3/ul (0.0-0.5) Basophils # 0.010^3/ul (0.0-0.1) Nucleated Red Blood Cells # 0.010^3/ul (0.0-0.0) Hemoglobin A1c 5.4% (0-5.9) Troponin I < 0.012ng/ml (0.00-0.12) OTILIO CANALES MD Feb 14, 2017 12:29
--- NOTE | 2017-02-14 12:30 | PDOCDIS ---
Discharge Instructions DIAGNOSIS Discharge Diagnosis sciatica CONDITION Patient Condition: Good HOME CARE INSTRUCTIONS: Special Diet: cardiac ACTIVITY: Activity Restrictions: Slowly Increase Activity Avoid heavy lifting Do not Drive FOLLOW UP/APPOINTMENTS Follow-up Plan appt pcp 1OTILIO Mireles MD Feb 14, 2017 12:30
[2017-02-14] MEDS ORDERED: METH750T2 PO (12:34)
[2017-02-14] MEDS ORDERED: GABA300C16 PO (12:34)
[2017-02-14] MEDS ORDERED: LISI20TA11 PO (12:34)
[2017-02-14] MEDS ORDERED: ADV25050 INH (12:34)
[2017-02-14] MEDS ORDERED: Methylprednisolone PO (12:34)
[2017-02-14] MEDS ORDERED: ASPI81TA3 PO (12:34)
[2017-02-14] MEDS ORDERED: DOCU-216 PO (12:34)
[2017-02-14] MEDS ORDERED: VALA500T PO (12:34)
[2017-02-14] MEDS ORDERED: MONT10TA24 PO (12:34)
[2017-02-14] MEDS: ONDANSETRON 4 MG INJ IV PRN (12:53)
[2017-02-15] MEDS ORDERED: METHYLPREDNISOLONE 4 MG TAB PO SCH (21:00)
== END 2017-02-14 17:41 | disposition home or self-care (01) | DRG 103 ==
LOC: TEL 02-11 00:01
PROVIDERS: ADMIT Family Medicine; ATTEND Family Medicine
DX: R51 Headache (principal); I12.9 Hypertensive chronic kidney disease with stage 1 through stage 4 chronic kidney disease, or unspecified chronic kidney disease; N39.0 Urinary tract infection, site not specified; B19.20 Unspecified viral hepatitis C without hepatic coma; R07.89 Other chest pain; F12.10 Cannabis abuse, uncomplicated; N28.9 Disorder of kidney and ureter, unspecified; R07.9 Chest pain, unspecified; Z85.528 Personal history of other malignant neoplasm of kidney; J45.909 Unspecified asthma, uncomplicated; N18.2 Chronic kidney disease, stage 2 (mild); M54.31 Sciatica, right side
CPT/HCPCS: 70450; 76775; 80048; 80053; 80061; 81001; 82306; 82550; 82553; 83036; 83735; 84100; 84443; 84484; 85025; 85045; 85610; 85651; 86140; 86803; 87086; 87340; 93306; 93880; 97161; J2270; J2405; J7030; J7509